=== PATIENT | female | born 1975 | race Caucasian/White ===

== ENCOUNTER 2016-10-30 15:53 | Observation (INO) | payer MEDICAID ==
[~2016-10-30] VITALS: Ht 152.4 cm; Wt 54.5 kg
[2016-10-30] MEDS ORDERED: PROMETHAZINE 25 MG/ML, 1ML ONE (16:18)
[2016-10-30] MEDS ORDERED: MEPERIDINE/PF 100 MG/ML ONE (16:18)
[2016-10-30 16:28] VITALS: BP 104/65
[2016-10-30] MEDS ORDERED: MEPERIDINE/PF 100 MG/ML IM PRN (16:30)
[2016-10-30] MEDS ORDERED: PROMETHAZINE 25 MG/ML, 1ML IM ONE (16:30)
[2016-10-30 16:32] LABS: DAU SCREEN DISCLAIMER
[2016-10-30 16:40] LABS: HEMATOCRIT 33.8 % (34.6-47.8); HEMOGLOBIN 11.3 g/dL (11.7-16.4); WHITE BLOOD COUNT 13.9 x10^3/uL (3.4-10)
[2016-10-30 16:47] LABS: ASPARTATE AMINO TRANSFERASE 13 U/L (15-37); BLOOD UREA NITROGEN 8 mg/dL (7-18)
[2016-10-30] MEDS ORDERED: D5%-LR+KCL 20MEQ 1,000 ML IV SCH (17:00)
[2016-10-30] MEDS ORDERED: PLEASE ENTER HEIGHT AND WEIGHT MC SCH (17:00)
[2016-10-30] MEDS ORDERED: PLEASE ENTER ALLERGIES MC SCH ×2 (17:00)
[2016-10-30] MEDS ORDERED: HYDROmorphone 1 MG/ML, 1ML IM PRN (18:00)
[2016-10-30] MEDS ORDERED: HYDROmorphone 1 MG/ML, 1ML ONE ×2 (18:11→21:08)
[2016-10-30] MEDS: HYDROmorphone 1 MG/ML, 1ML IV PRN ×2 (18:20→21:11)
[2016-10-30] MEDS ORDERED: HYDROcodone/APAP 5/325 TABLET ONE (20:21)
[2016-10-30] MEDS ORDERED: HYDROcodone/APAP 5/325 TABLET PO ONE (20:30)
[2016-10-30] MEDS ORDERED: ONDANSETRON 2MG/ML, 2ML ONE (21:08)
[2016-10-30] MEDS ORDERED: ONDANSETRON 2MG/ML, 2ML IVPush ONE (21:30)
[2016-10-30] MEDS ORDERED: HYDR-3240 PO (22:49)
[2016-10-30] MEDS ORDERED: ONDA8TAB9 PO (22:49)
[2016-10-30] MEDS ORDERED: DOCU240C53 PO (22:50)
== END 2016-10-30 22:55 | disposition home or self-care (01) ==
LOC: LDOP 15:53 → LDIP 18:02
PROVIDERS: ADMIT Obstetrics & Gynecology; ATTEND Obstetrics & Gynecology
DX: O26.893 Other specified pregnancy related conditions, third trimester (principal); R10.10 Upper abdominal pain, unspecified; O09.523 Supervision of elderly multigravida, third trimester; Z3A.32 32 weeks gestation of pregnancy
CPT/HCPCS: 36415; 59025; 76700; 80053; 80307; 81001; 82150; 82247; 82248; 83690; 85025; 87086; 96361; 96372; 96374; 96375; 96376; G0378; J1170; J2175; J2405; J2550; J3480; 96360